=== PATIENT | male | born 1940 | race Caucasian/White ===

== ENCOUNTER 2019-10-27 08:36 | Inpatient (IN) | payer MEDICARE, OTHER ==
[~2019-10-27] VITALS: Ht 177.8 cm; Wt 72.6 kg
[~2019-10-27 08:36] MED LIST: ASMANEX220 MC1 INH; CEPHALEXIN500 MG PO; DULERA 100 MCG/13 GM INH; FLUOXETINE HCL20 MG PO; NEURONTIN100 MG PO; NEURONTIN300 MG PO; NICODERM CQ1 EAC1 TD; PLAVIX75 MG PO
--- OUTSIDE RECORDS SUMMARY | 2019-10-27 08:40 | XMS ---
PreManage Notification: OSITO HERNANDEZ Security Sonar Technician Events No recent Security Events currently on file CRITERIA MET - [facility] - [facility] - 2 Visits in 30 Days CARE PROVIDERS There are no care providers on record at this time. Andie has no Care Guidelines for this patient. Óscar VISIT COUNT (12 MO.) 3 [facility] TOTAL 3 NOTE: Visits indicate total known visits. ED/C VISIT TRACKING (12 MO.) 10/27/2019 08:38 [facility] [place] TYPE: Emergency COMPLAINT: - FALL, URINE PROBLEM 10/25/2019 20:19 [facility] [place] TYPE: Emergency COMPLAINT: - ALTERED MENTAL STATUS 10/21/2019 18:21 [facility] [place] TYPE: Emergency COMPLAINT: - LOC DIAGNOSES: - Allergy status to other antibiotic agents status - Syncope and collapse - Prsnl hx of TIA (TIA), and cereb infrc w/o resid deficits - Other fci (current) drug therapy - Essential (primary) hypertension - Gastro-esophageal reflux disease without esophagitis - Personal history of nicotine dependence - Allergy status to penicillin - Chronic obstructive pulmonary disease, unspecified INPATIENT VISIT TRACKING (12 MO.) No inpatient visits to display in this time frame [email or web address]
[2019-10-27] MEDS ORDERED: ACETAMINOPHEN500 MG PO (09:23)
--- NOTE | 2019-10-27 12:00 | NUR ---
PT ARRIVES TO [facility] VIA [facility] 3 PERSON ASSIST TRANSFER TO BED, ALARM IS SET. PT DOES NOT ANSWER QUESTIONS OR MAKE EYE CONTACT APPEARS DROWSY. UNDERGARMENT CHANGED WOUND TO SACRUM CLEANSED AND COVERED.
--- NOTE | 2019-10-27 13:32 | NUR ---
PT RESTLESS AND RESPONDING TO UNSEEN STIMULI APPEARS STRESSED HALDOL GIVEN
--- NOTE | 2019-10-27 13:54 | NUR ---
PATIENT IS TRYING TO CLIMB OUT OUT BED . SWINGS HIS ARMS WHEN TRYING TO DO VITAL,HULUNATION CALLING OUT TREATS, SAYING HIS DYING ,PATIENT HAS NO IDEAH WHERE HE IS
--- NOTE | 2019-10-27 14:44 | NUR ---
PT RESTING NOW, CONTINUES TO TALK SOMEWHAT, BUT CALMER NOT RESTLESS. BREATHING EVEN AND UNLABORED
--- NOTE | 2019-10-27 16:40 | NUR ---
PT RESTING IN BED CONTINUES TO BE RESTLESS RESPONDING TO UNSEEN STIMULI. SEIZURE PADS PLACED TO PROTECT PT FROM INJURING HIMSELF ON BED RAILS OR OTHER. SUPERVISOR OFFSET PLATE PREPARATION SITTING 11/14 AT THIS TIME TO PREVENT PT FROM PULLING IV OUT.
--- NOTE | 2019-10-27 17:44 | NUR ---
PT TOLERATES CLEAR LIQUID DIET WELL THIS EVENING FINISHES JELLO, BROTH, WELL JUICE. HE IS NOT COMBATIVE AT THIS TIME, BUT CONTINUES TO BE RESTLESS
--- NOTE | 2019-10-27 19:18 | NUR ---
RECEIVED REPORT FROM VENECIA BURCH. pt RESTING IN BED. BED ALARM ON. CURTAIN OPEN TO THE NURSES STATION. WHITEBOARD UPDATED.
--- NOTE | 2019-10-27 19:46 | NUR ---
ROUNDED CHARGE. ASSISTED PRIMARY RN TO REPOSITION pt. PRIMARY RN SARAH IN ROOM.
--- NOTE | 2019-10-27 19:50 | NUR ---
IN TO DO ASSESSMENT. pt RESTLESS. ORIENTED TO SELF CORRECTLY STATED NAME AND DATE OF . REPEATED THAT HE WAS AT [facility] LATER DURING ASSESSMENT. REPOSITIONED IN BED. DENIED PAIN AT THIS TIME. IVF INFUSING. BED ALARM ON. CURTAIN OPEN TO NURSES STATION.
--- NOTE | 2019-10-27 22:14 | NUR ---
SUZETTE D/C'D WNL. REPOSITIONED IN BED WITH TIMOTEO ESCOBAR. pt TOLERATED WELL. ATTENDS IN PLACE. WARM BLANKET PROVIDED. BED ALARM ON. LIGHTS OFF IN ROOM. IVF INFUSING WNL.
--- NOTE | 2019-10-28 00:29 | NUR ---
ROUNDED ON pt. CHANGED DEPEND, PAD SATURATED. NO REQUESTS AT THIS TIME. BED ALARM ON. CURTAIN OPEN TO NURSES STATION.
--- NOTE | 2019-10-28 02:15 | NUR ---
CHANGED pt. FRESH LINENS AND DEPENDS. VITALS AND I&O RECORDED. ASSESSMENT DONE. BED ALARM ON. CURTAIN OPEN TO NURSES STATION.
--- NOTE | 2019-10-28 04:00 | NUR ---
pt RESTLESS. DIRECTOR OF ENVIRONMENTAL SERVICES IN ROOM TO REDIRECT pt. BED ALARM ON.
--- NOTE | 2019-10-28 06:19 | NUR ---
pt AWAKE IN BED, RESTLESS. LARGE INCONTINENCE OF URINE, SMEAR OF STOOL. ATTENDS AND BEDDING CHANGED. VSS. REPOSITIONED IN BED. WARM BLANKETS PROVIDED. IVF INFUSING WNL. pt COOPERATIVE, TOLERATED WELL. BED ALARM ON.
--- NOTE | 2019-10-28 06:32 | NUR ---
pt DID NOT REST DURING SHIFT. RESTLESS, HALLUCINATIONS. NOT ORIENTED TO SITUATION OR PLACE. AT TIMES COMBATIVE ESPECIALLY IF SURPRISED. BRADFORD DC'd. INCONTINENT VOIDING. IVF INFUSING. TOLERATING CLEAR LIQUIDS. MULTIPLE SKIN TEARS. BED ALARM ON.
--- NOTE | 2019-10-28 07:34 | NUR ---
BEDSIDE REPORT RECEIVED PT RESTING SOUNDLY
--- NOTE | 2019-10-28 07:58 | NUR ---
Patient is sleeping call light in reach water in reach
--- NOTE | 2019-10-28 09:43 | NUR ---
PT AWAKENED FOR MORNING FLUIDS HE'S COOPERATIVE WITH GOOD INTAKE. NO COUGHING OR OTHER, FLUIDS WELL TOLERATED. PT APPEARS MORE ALERT TODAY, THOUGH CONFUSED, HE IS ABLE TO MAKE EYE CONTACT AND IS NOT CURRENTLY HALLUCINATING. BED ALARM IS SET AND SEIZURE PADS IN PLACE FOR SKIN PROTECTION.
--- NOTE | 2019-10-28 12:49 | NUR ---
DR BALBUENA IN TO SEE PT. DIET ORDER CHANGED PT EATS 100% OF SOFT LUNCH VISITS APPROPRIATELY. PT REQUIRES ASSIST TO EAT DUE TO HAND AND EYE DEFICITS. SPOKE TO [facility] THEY REPORT PT IS NON-AMBULATORY AT BASELINE.
--- NOTE | 2019-10-28 13:30 | NUR ---
pt resting soundly eyes closed breathing even and unlabored pt appears comfortable and no longer restless
--- NOTE | 2019-10-28 16:46 | NUR ---
PT UP TO THE CHAIR 2 PERSON ASSIST STAND PIVOT. ASSIST WITH HYGIEN PROVIDED
--- NOTE | 2019-10-28 18:09 | NUR ---
PT UP TO THE CHAIR FOR EVENING MEAL THEN TO REST IN BED. PT STATED HE NEEDED TO MOVE HIS BOWELS, 2 PERSON ASSIST TO BSC HE HAS LARGE BM. RETURNS TO BED TO REST
--- NOTE | 2019-10-28 19:21 | NUR ---
BEDSIDE REPORT RECEIVED FROM MARCIN CUADRA. pt RESTING IN BED. NO REQUESTS AT THIS TIME. BED ALARM ON.
--- NOTE | 2019-10-28 19:49 | NUR ---
ROUNDED CHARGE. PATIENT IS RESTING IN BED. VITALS TAKEN AND RECORDED. PATIENTS ATTEND CHANGED AND MORENA CARE COMPLETED. PATIENT REPOSITIONED IN BED. INTAKE AND OUPUT RECORDED. NOLVIA BURCH PRESENT IN ROOM.
--- NOTE | 2019-10-28 20:15 | NUR ---
pt CALLING OUT. ATTENDS AND CHUX CHANGED, INCONTINENT OF URINE AND STOOL. BARRIER CREAM APPLIED TO BUTTOCKS AND MORENA AREA. pt ORIENTED TO SELF, . REORIENTATION PROVIDED REGARDING SITUATION, LOCATION, DATE. IV SITES FLUSHED WNL SL. NON-ADHERANT DRESSING APPLIED TO SKIN TEARS ON RIGHT ARM. ASSESSMENT COMPLETE. BED ALARM ON.
--- NOTE | 2019-10-28 22:53 | NUR ---
CHECKED ON pt. RESTING IN BED WITH EYES CLOSED. BREATHING UNLABORED. LIGHTS OFF IN ROOM. pt NOT SHIFTING IN BED.
--- NOTE | 2019-10-29 02:00 | NUR ---
pt RESTING IN BED WITH EYES CLOSED, SNORING. BREATHING UNLABORED. BED ALARM ON.
--- NOTE | 2019-10-29 05:27 | NUR ---
pt CALLING OUT, STATES "IT HURTS". IN ROOM TO ADMINISTER PAIN MEDICATION. BEDDING SATURATED WITH URINE, LINENS, ATTENDS, CHUX CHANGED. ALLEVYN PLACED ON COCCYX, BILATERALLY HIPS. STAGE 1 PRESSURE ULCER UNCHANGED FROM PREVIOUS SHIFT. SMALL SKIN TEAR ON BUTTOCK. REPOSITIONED IN BED, PILLOWS UNDER HIPS BILATERALLY. WARM BLANKETS PROVIDED. pt DROWSY, REFUSES PRN TYLENOL ADMINISTRATION AT THIS TIME.
--- NOTE | 2019-10-29 05:36 | NUR ---
pt MORE ALERT THIS SHIFT, CONVERSING WITH STAFF. ORIENTED TO SELF, . REORIENTATION PROVIDED. INCONTINENT OF URINE, STOOL. SLEPT WELL THIS SHIFT. ALLEVYN PLACED ON COCCYX FOR STAGE 1 PRESSURE SORE UNCHANGED FROM PREVIOUS SHIFT. REDDENED AREA RIGHT HIP ALLEVYN PLACED. IV SITES SL. BED ALARM IN PLACE.
--- NOTE | 2019-10-29 07:20 | NUR ---
PT IN BED, EYES CLOSED, RESPIRATIONS EVEN AND NON LABORED. PT HAS NO S/S OF DISTRESS. PERSONAL SUPPLIES WITHIN REACH.
--- NOTE | 2019-10-29 08:05 | NUR ---
PATIENT RESTING IN BED. RN IN ROOM. PATIENT'S ATTENDS CHANGED. PATIENT REPOSITIONED ON HIS RIGHT SIDE. TWO PERSON ASSISTING. WARM BLANKETS PROVIDED. PATIENT'S BREAKFAST ORDERED. CALL LIGHT WITHIN REACH. NO OTHER NEEDS AT THIS TIME
--- NOTE | 2019-10-29 08:25 | NUR ---
ADMIN TYLENOL 500MG PO FOR REPORTS OF GENERALIZED 7/10 PAIN.
--- NOTE | 2019-10-29 09:00 | NUR ---
PATIENT RESTING IN BED. RN IN ROOM. ATTEND CHANGED. PATIENT REPOSITIONED ON HIS LEFT SIDE. TWO PERSON ASSISTING. CALL LIGHT WITHIN REACH. NO OTHER NEEDS AT THIS TIME
--- NOTE | 2019-10-29 09:07 | NUR ---
PATIENT RESTING IN BED. VITAL SIGNS AND I&O DONE. ICE WATER GIVEN. CALL LIGHT WITHIN REACH. NO OTHER NEEDS AT THIS TIME
[2019-10-29] MEDS ORDERED: CEPHALEXIN500 MG PO (11:13)
--- NOTE | 2019-10-29 12:08 | NUR ---
In and spoke with Laurent. He states he is not sure where he is and where he is going. Let him know he will return to [facility] tomorrow. Pt states this is fine. States yes to all questions when asked about DME. Spoke with Nehemiah at [facility] and he can return tomorrow.
--- NOTE | 2019-10-29 12:24 | NUR ---
Called and spoke with Nehemiah further information received. Pt arrived at [facility] when removed from the home by [employer], pt was found hypothermic in a room without heat and a sheet. She is unsure if he was living with family. He has been living at [facility] since Sep 29. Dr Salcido is is Dr as he is meterman placement. [facility] is his pharmacy.
--- NOTE | 2019-10-29 13:19 | NUR ---
PATIENT RESTING IN BED. VITAL SIGNS AND I&O DONE. WATER GIVEN. CALL LIGHT WITHIN REACH. NO OTHER NEEDS AT THIS TIME
--- NOTE | 2019-10-29 15:26 | NUR ---
PT IN BED AT THIS TIME, RESP EVEN AND NON LABORED. PT CONFUSED. REORIENT PT PRN. CALL LIGHT WITHIN REACH. TV ON AT THIS TIME. CLOSE TO RN STATION.
--- NOTE | 2019-10-29 15:50 | NUR ---
PATIENT RESTING IN BED. PATIENT SHAVED. COFFEE GIVEN. CALL LIGHT WITHIN REACH. NO OTHER NEEDS AT THIS TIME
--- NOTE | 2019-10-29 17:22 | NUR ---
PT IN BED AT THIS TIME WATCHING TV. PT IS ON RA, RESP EVEN AND NON LABORED. PERSONAL SUPPLIES AND CALL LIGHT WITHIN REACH.
--- NOTE | 2019-10-29 17:22 | NUR ---
PATIENT SITTING UP IN BED. PATIENT FED. VITAL SIGNS AND I&O DONE. HIGH DYASTOLIC BLOOD PRESSURE. RN NOTIFIED. CALL LIGHT WITHIN REACH. NO OTHER NEEDS AT THIS TIME
--- NOTE | 2019-10-29 19:25 | NUR ---
REPORT RECEIVED FROM DAY SHIFT RN. PT RESTING IN BED WITH EYES CLOSED, AWAKENS TO VOICE. SIDE RAILS UP AND BED ALARM ON FOR SAFETY. PT DENIES NEEDS AT THIS TIME. CALL LIGHT WITHIN REACH.
--- NOTE | 2019-10-29 21:00 | NUR ---
PT ALERTED STAFF OF WET ATTENDS. FRESH ATTENDS PLACED WITH 2PA, MORENA CARE DONE BY STAFF. PT ABLE TO ASSIST IN ROLLING BACK AND FORTH. REPOSITIONED IN BED. CALL LIGHT IN REACH.
--- NOTE | 2019-10-29 22:30 | NUR ---
EVENING ASSESSMENT COMPLETE. PM MEDS GIVEN WITHOUT DIFFICULTY. PT ORIENTED TO SELF AND PLACE. SCATTED BRUISING NOTED. ALLEVYN ON COCCYX AND RIGHT HIP CDI.
--- NOTE | 2019-10-29 22:44 | NUR ---
ASSISTED PATIENT DRINKING COFFEE. PATIENT USED LUCY CALL LIGHT. PATIENT WANTED TO BE CHANGED HIS ATTENDS. DONE.
--- NOTE | 2019-10-30 01:51 | NUR ---
PT RESTING IN BED WITH EYES CLOSED, NAD. RR EVEN AND UNLABORED.
--- NOTE | 2019-10-30 03:50 | NUR ---
PT RESTING IN BED WITH EYES CLOSED, RR EVEN AND UNLABORED. CALL LIGHT WITHIN REACH.
--- NOTE | 2019-10-30 06:03 | NUR ---
PT SLEPT WELL. ALERT, ORIENTED TO SELF AND PLACE. USES CALL LIGHT APPROPRIATELY. WILL CALL OUT AT TIMES ALSO. BED ALARM ON. SCATTERED BRUISES AND SKIN TEARS. ALLEVYN ON COCCYX AND RIGHT HIP. NON-AMBULATORY AT BASELINE. NEURONTIN FOR PAIN. PT STATES TYLENOL DOES NOT HELP HIM. TANIYA LIFT TO CHAIR.
--- NOTE | 2019-10-30 07:24 | NUR ---
PT SLEEPING AT THIS TIME, RESP EVEN AND NON LABORED. PT HAS NO DISTRESS NOTED. PERSONAL SUPPLIES AND CALL LIGHT WITHIN REACH. NO NEEDS AT THIS TIME.
--- NOTE | 2019-10-30 08:48 | NUR ---
PATIENT RESTING IN BED. PATIENT'S ATTENDS CHANGED. TWO PERSON ASSISTING. PATIENT FED. CALL LIGHT WITHIN REACH. NO OTHER NEEDS AT THIS TIME
--- NOTE | 2019-10-30 09:09 | NUR ---
Spoke with Nehemiah at [facility]. Pt will dc today and they will picking tech at 11:00. Discharge orders and summary faxed to Nehemiah and then placed on chart.
--- NOTE | 2019-10-30 09:25 | NUR ---
PATIENT RESTING IN BED. PATIENT'S ATTENDS CHANGED. VITAL SIGNS AND I&O DONE. CALL LIGHT WITHIN REACH. NO OTHER NEEDS AT THIS TIME
--- NOTE | 2019-10-30 10:57 | NUR ---
PATIENT RESTING IN BED. ATTTEND CHANGED. PATIENT IS USING HIS OWN CLOTHES BEFORE TO BE DISCHARGE FROM THE UNIT. TWO PERSON ASSISTING. CALL LIGHT WITHIN REACH. NO OTHER NEEDS AT THIS TIME
== END 2019-10-30 11:25 | disposition home or self-care (01) | DRG 871 ==
LOC: ED 08:36 → MS 11:21
PROVIDERS: ADMIT Internal Medicine
DX: A41.59 Other Gram-negative sepsis (principal); G93.41 Metabolic encephalopathy; N30.00 Acute cystitis without hematuria; I69.354 Hemiplegia and hemiparesis following cerebral infarction affecting left non-dominant side; F33.9 Major depressive disorder, recurrent, unspecified; J43.1 Panlobular emphysema; F01.50 Vascular dementia, unspecified severity, without behavioral disturbance, psychotic disturbance, mood disturbance, and anxiety; Z88.0 Allergy status to penicillin; Z88.1 Allergy status to other antibiotic agents; Z79.899 Other long term (current) drug therapy; Z79.51 Long term (current) use of inhaled steroids; Z79.02 Long term (current) use of antithrombotics/antiplatelets
CPT/HCPCS: 51702; 71045; 80053; 81001; 83605; 85025; 87088; 87502; 94640; 94760; 99285-25; A9270; J0696; J1630; J1650; J7030; J7121

== ENCOUNTER 2019-11-22 16:45 | Emergency (ER) | payer MEDICARE, OTHER ==
[~2019-11-22] VITALS: Ht 177.8 cm; Wt 72.6 kg
[~2019-11-22 16:45] MED LIST changes: +ACETAMINOPHEN500 MG PO
--- OUTSIDE RECORDS SUMMARY | 2019-11-22 16:48 | XMS ---
PreManage Notification: OSITO HERNANDEZ Security Breakdown Mill Operator Events No recent Security Events currently on file CRITERIA MET - [facility] - 2 Visits in 30 Days CARE PROVIDERS GARY BRAVO [facility] 10/29/2019-Current PHONE: [phone] Andie has no Care Guidelines for this patient. Óscar VISIT COUNT (12 MO.) 4 [facility] TOTAL 4 NOTE: Visits indicate total known visits. ED/UCC VISIT TRACKING (12 MO.) 11/22/2019 16:46 [facility] [place] TYPE: Emergency COMPLAINT: - L ARM INJURY 10/27/2019 08:38 [facility] [place] TYPE: Emergency COMPLAINT: - FALL, URINE PROBLEM 10/25/2019 20:19 [facility] [place] TYPE: Emergency COMPLAINT: - ALTERED MENTAL STATUS DIAGNOSES: - Allergy status to penicillin - Other intermediate accountant (current) drug therapy - Emphysema, unspecified - Urinary tract infection, site not specified - Essential (primary) hypertension - Urinary tract infection, site not specified 10/21/2019 18:21 [facility] [place] TYPE: Emergency COMPLAINT: - LOC DIAGNOSES: - Allergy status to other antibiotic agents status - Syncope and collapse - Prsnl hx of TIA (TIA), and cereb infrc w/o resid deficits - Other senior living (current) drug therapy - Essential (primary) hypertension - Gastro-esophageal reflux disease without esophagitis - Personal history of nicotine dependence - Allergy status to penicillin - Chronic obstructive pulmonary disease, unspecified INPATIENT VISIT TRACKING (12 MO.) 10/27/2019 11:21 [facility] [place] TYPE: Medical Surgical COMPLAINT: - UTI - ENCEPHALOPATHY DIAGNOSES: - Other Gram-negative sepsis Other Gra - Sepsis, unspecified organism Sepsis, u - intermediate (current) use of inhaled steroids - Allergy status to penicillin - Allergy status to other antibiotic agents status - Vascular dementia without behavioral disturbance - Metabolic encephalopathy - Hemiplga following cerebral infrc affecting left nondom side - Acute cystitis without hematuria - intermediate (current) use of antithrombotics/antiplatelets - Major depressive disorder, recurrent, unspecified - Other intermediate accountant (current) drug therapy - Panlobular emphysema [email or web address]
[2019-11-22] MEDS ORDERED: ZYPREXA5 MG PO (19:58)
== END 2019-11-22 20:20 | disposition home or self-care (01) ==
LOC: ED 16:45
DX: S41.112A Laceration without foreign body of left upper arm, initial encounter (principal); S41.111A Laceration without foreign body of right upper arm, initial encounter; W22.8XXA Striking against or struck by other objects, initial encounter; R25.9 Unspecified abnormal involuntary movements; J44.9 Chronic obstructive pulmonary disease, unspecified; F32.9 Major depressive disorder, single episode, unspecified; I10 Essential (primary) hypertension; K21.9 Gastro-esophageal reflux disease without esophagitis; Z87.891 Personal history of nicotine dependence; Z88.0 Allergy status to penicillin; Z88.1 Allergy status to other antibiotic agents; Z79.899 Other long term (current) drug therapy
CPT/HCPCS: 71045; 73060; 73090; 80053; 85025; 96374; 99284-25; J3010

== ENCOUNTER 2020-04-16 11:34 | Emergency (ER) | payer MEDICARE, OTHER ==
[~2020-04-16] VITALS: Ht 177.8 cm; Wt 72.6 kg
[~2020-04-16 11:34] MED LIST changes: +ZYPREXA5 MG PO
--- OUTSIDE RECORDS SUMMARY | 2020-04-16 11:36 | XMS ---
PreManage Notification: OSITO HERNANDEZ Security Director Chemistry Events No recent Security Events currently on file CRITERIA MET - History of Sepsis Dx - PDMP CARE PROVIDERS Name Unknown Detention Facility Current PHONE: [phone] Carmen Seymour Bin Operator/Elevator Examiner And Adjuster 02/22/2020-Current PHONE: [phone] [facility] 10/29/2019-Current PHONE: [phone] Ines Murillo Community Health Worker 03/14/2019-Current Abdiel Yan PHONE: [phone] Artie Martini [facility] Current PHONE: [phone] Andie has no Care Guidelines for this patient. Óscar VISIT COUNT (12 MO.) 3 [place] [address] [facility] TOTAL 8 NOTE: Visits indicate total known visits. ED/UCC VISIT TRACKING (12 MO.) 04/16/2020 11:34 [facility] [place] TYPE: Emergency COMPLAINT: - RASH AROUND EYES 11/22/2019 16:46 [facility] [place] TYPE: Emergency COMPLAINT: - L ARM INJURY DIAGNOSES: - Allergy status to other antibiotic agents status - Major depressive disorder, single episode, unspecified - Unspecified abnormal involuntary movements - Other mcc (current) drug therapy - Essential (primary) hypertension - Gastro-esophageal reflux disease without esophagitis - Pain in left arm - Personal history of nicotine dependence - Allergy status to penicillin - Laceration without foreign body of left upper arm, initial en - Chronic obstructive pulmonary disease, unspecified - Laceration without foreign body of right upper arm, initial e - Striking against or struck by other objects, initial encounte 10/27/2019 08:38 [facility] [place] TYPE: Emergency COMPLAINT: - FALL, URINE PROBLEM 10/25/2019 20:19 [facility] [place] TYPE: Emergency COMPLAINT: - ALTERED MENTAL STATUS DIAGNOSES: - Allergy status to penicillin - Other termite control servicer (current) drug therapy - Emphysema, unspecified - Urinary tract infection, site not specified - Essential (primary) hypertension - Urinary tract infection, site not specified 10/21/2019 18:21 [facility] [place] TYPE: Emergency COMPLAINT: - LOC DIAGNOSES: - Allergy status to other antibiotic agents status - Syncope and collapse - Personal history of transient ischemic attack (TIA), and cere - Other mcc (current) drug therapy - Essential (primary) hypertension - Gastro-esophageal reflux disease without esophagitis - Personal history of nicotine dependence - Allergy status to penicillin - Chronic obstructive pulmonary disease, unspecified 09/28/2019 10:53 [facility] [place] TYPE: Emergency DIAGNOSES: - INCREASED WEAKNESS - Hypothermia, initial encounter 06/02/2019 07:43 [facility] [place] TYPE: Emergency DIAGNOSES: - POSSIBLE STROKE - Contusion of left front wall of thorax, initial encounter - Chondrocostal junction syndrome [Destinytze] 05/08/2019 10:09 [facility] [place] TYPE: Emergency DIAGNOSES: - Other muscle spasm - Unspecified acute conjunctivitis, bilateral - STROKE INPATIENT VISIT TRACKING (12 MO.) 10/27/2019 11:21 [facility] [place] TYPE: Medical Surgical COMPLAINT: - UTI - ENCEPHALOPATHY DIAGNOSES: - Other Gram-negative sepsis - Sepsis, unspecified organism - USP (current) use of inhaled steroids - Allergy status to penicillin - Allergy status to other antibiotic agents status - 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
[2020-04-16] MEDS ORDERED: AMLODIPINE BES2.5 MG PO (11:52)
[2020-04-16] MEDS ORDERED: GABAPENTIN400 MG PO (11:53)
[2020-04-16] MEDS ORDERED: CLOPIDOGREL75 MG PO (11:54)
[2020-04-16] MEDS ORDERED: TRAMADOL HCL50 MG PO (11:55)
[2020-04-16] MEDS ORDERED: QUETIAPINE FUMA25 MG PO (11:55)
[2020-04-16] MEDS ORDERED: FAMCICLOVIR500 MG PO (12:49)
== END 2020-04-16 13:30 | disposition home or self-care (01) ==
LOC: ED 11:34
DX: B02.9 Zoster without complications (principal); J44.9 Chronic obstructive pulmonary disease, unspecified; F32.9 Major depressive disorder, single episode, unspecified; I10 Essential (primary) hypertension; K21.9 Gastro-esophageal reflux disease without esophagitis; Z87.891 Personal history of nicotine dependence; Z88.0 Allergy status to penicillin; Z88.8 Allergy status to other drugs, medicaments and biological substances; Z79.899 Other long term (current) drug therapy; Z79.02 Long term (current) use of antithrombotics/antiplatelets
CPT/HCPCS: 99283

== ENCOUNTER 2020-06-17 19:43 | Emergency (ER) | payer MEDICARE, OTHER ==
[~2020-06-17] VITALS: Ht 177.8 cm; Wt 67.4 kg
[~2020-06-17 19:43] MED LIST changes: +AMLODIPINE BES2.5 MG PO; +AMLODIPINE BESYL5 MG PO; +ANTIFUNGAL CREA14 GM TOP; +CLOPIDOGREL75 MG PO; +DULCOLAX10 MG PR; +FAMCICLOVIR500 MG PO; +FLEET ENEMA133 ML PR; +GABAPENTIN400 MG PO; +GERI-MOX ANTAC355 ML PO; +GERI-TUSSI100 MG/5 M PO; +HYDROXYZINE HCL25 MG PO; +LIDO KING1 EACH TOP; +MILK OF MA400 MG/5 M PO; +QUETIAPINE FUMA25 MG PO; +SENIOR TABS1 EACH PO; +TRAMADOL HCL50 MG PO; +TYLENOL WITH C1 EACH PO
--- OUTSIDE RECORDS SUMMARY | 2020-06-17 19:46 | XMS ---
PreManage Notification: OSITO HERNANDEZ Security Chain Builder Loom Control Events No recent Security Events currently on file CRITERIA MET - History of Sepsis Dx - PDMP - [facility] - 2 Visits in 30 Days CARE PROVIDERS Name Unknown [facility]it[facility] Facility Current PHONE: [phone] Carmen Seymour Retail Shift Supervisor/Train Brakeman 02/22/2020-Current PHONE: [phone] [facility] 10/29/2019-Current PHONE: [phone] Ines Murillo Community Health Worker 03/14/2019-Current Abdiel Yan PHONE: [phone] Artie Martini [facility] Current PHONE: [phone] Andie has no Care Guidelines for this patient. Óscar VISIT COUNT (12 MO.) [address] [place] [address] NAT[facility] Flynn TOTAL 8 NOTE: Visits indicate total known visits. ED/UCC VISIT TRACKING (12 MO.) 06/17/2020 19:43 [facility] [place] TYPE: Emergency COMPLAINT: - ABD PAIN 05/19/2020 15:04 [facility] [place] TYPE: Emergency COMPLAINT: - WEAKNESS 04/16/2020 11:34 [facility] [place] TYPE: Emergency COMPLAINT: - RASH AROUND EYES DIAGNOSES: - Allergy status to penicillin - Personal history of nicotine dependence - Zoster without complications - Rash and other nonspecific skin eruption - dental hygienist (current) use of antithrombotics/antiplatelets - Chronic obstructive pulmonary disease, unspecified - Allergy status to other drugs, medicaments and biological sub - Major depressive disorder, single episode, unspecified - Other storage battery charger (current) drug therapy - Essential (primary) hypertension - Gastro-esophageal reflux disease without esophagitis 11/22/2019 16:46 [facility] [place] TYPE: Emergency COMPLAINT: - L ARM INJURY DIAGNOSES: - Allergy status to other antibiotic agents status - Major depressive disorder, single episode, unspecified - Unspecified abnormal involuntary movements - Other storage battery charger (current) drug therapy - Essential (primary) hypertension [...] - Allergy status to penicillin - Other storage battery charger (current) drug therapy - Emphysema, unspecified - Urinary tract infection, site not specified - Essential (primary) hypertension - Urinary tract infection, site not specified 10/21/2019 18:21 [facility] [place] TYPE: Emergency COMPLAINT: - LOC DIAGNOSES: - Allergy status to other antibiotic agents status - Syncope and collapse - Personal history of transient ischemic attack (TIA), and cere - Other storage battery charger (current) drug therapy - Essential (primary) hypertension - Gastro-esophageal reflux disease without esophagitis - Personal history of nicotine dependence - Allergy status to penicillin - Chronic obstructive pulmonary disease, unspecified 09/28/2019 10:53 [facility] [place] TYPE: Emergency DIAGNOSES: - INCREASED WEAKNESS - Hypothermia, initial encounter INPATIENT VISIT TRACKING (12 MO.) 05/19/2020 15:05 [facility] [place] TYPE: Observation COMPLAINT: - ALTERED LOC DIAGNOSES: - Unspecified coma - Essential (primary) hypertension - Gastro-esophageal reflux disease without esophagitis - Hemiplegia, unspecified affecting unspecified side - Major depressive disorder, single episode, unspecified - Zoster without complications - Hyperlipidemia, unspecified - Emphysema, unspecified - Contact with and (suspected) exposure to other viral communic - Allergy status to penicillin - Restlessness and agitation - Allergy status to other drugs, medicaments and biological sub 10/27/2019 11:[address] 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
[2020-06-17] MEDS ORDERED: NEURONTIN400 MG PO (20:55)
[2020-06-17] MEDS ORDERED: ATIVAN1 MG PO (20:58)
[2020-06-17] MEDS ORDERED: SYMBICORT 16010.2 GM INH (21:05)
[2020-06-17] MEDS ORDERED: NAPROXEN375 MG PO (22:45)
== END 2020-06-17 23:51 | disposition home or self-care (01) ==
LOC: ED 19:43
PROC: 4A0D7LZ Measurement of Urinary Volume, Via Natural or Artificial Opening (ICD-10-PCS; principal; 2020-06-17)
DX: K40.90 Unilateral inguinal hernia, without obstruction or gangrene, not specified as recurrent (principal); J44.9 Chronic obstructive pulmonary disease, unspecified; I10 Essential (primary) hypertension; K21.9 Gastro-esophageal reflux disease without esophagitis; Z86.73 Personal history of transient ischemic attack (TIA), and cerebral infarction without residual deficits; Z87.891 Personal history of nicotine dependence; Z88.0 Allergy status to penicillin; Z88.8 Allergy status to other drugs, medicaments and biological substances; Z79.899 Other long term (current) drug therapy
CPT/HCPCS: 51798; 74177; 80053; 81001; 85025; 96361; 96374; 96375; 99284-25; J2270; J2405; J7030; Q9967

== ENCOUNTER 2020-08-11 11:40 | Emergency (ER) | payer MEDICARE, OTHER ==
[~2020-08-11] VITALS: Ht 177.8 cm; Wt 76.7 kg
[~2020-08-11 11:40] MED LIST changes: +ACETAMINOPHEN-1 EAC1 PO; +ATIVAN1 MG PO; +KEFLEX500 MG PO; +NAPROXEN375 MG PO; +NEURONTIN400 MG PO; +PANTOPRAZOLE SO40 MG PO; +SENNA PLUS 8.61 EACH PO; +SYMBICORT 16010.2 GM INH; +TAMSULOSIN HCL0.4 MG PO
--- OUTSIDE RECORDS SUMMARY | 2020-08-11 11:42 | XMS ---
PreManage Notification: OSITO HERNANDEZ Security Production Team Member Events No recent Security Events currently on file CRITERIA MET - 6 ED Visits in 6 Months - History of Sepsis Dx - [facility] - 2 Visits in 30 Days CARE PROVIDERS Name Unknown Long-Term Facility Current PHONE: [phone] Carmen Seymour Associate Professor Of Literacy/Family Living Educator 02/22/2020-Current PHONE: [phone] [facility] 10/29/2019-Current PHONE: [phone] Ines Murillo Community Health Worker 03/14/2019-Current Abdiel Yan PHONE: [phone] Artie Martini [facility] Current PHONE: [phone] Andie has no Care Guidelines for this patient. EJulian VISIT COUNT (12 MO.) [address] [place] [address] NATALIA Flynn TOTAL 11 NOTE: Visits indicate total known visits. ED/UCC VISIT TRACKING (12 MO.) 08/11/2020 11:41 [facility] [place] TYPE: Emergency COMPLAINT: - COMBATIVE 07/30/2020 22:25 [facility] [place] TYPE: Emergency COMPLAINT: - ALTERED MENTAL STATUS DIAGNOSES: - Major depressive disorder, single episode, unspecified - Personal history of nicotine dependence - Altered mental status, unspecified - Altered mental status, unspecified - Urinary tract infection, site not specified - Unspecified dementia without behavioral disturbance - Chronic obstructive pulmonary disease, unspecified - Allergy to other foods - Allergy status to other antibiotic agents status - Allergy status to penicillin - Gastro-esophageal reflux disease without esophagitis - Other mcfp (current) drug therapy 06/25/2020 16:21 [facility] [place] TYPE: Emergency COMPLAINT: - ABD PAIN 06/17/2020 19:43 [facility] [place] TYPE: Emergency COMPLAINT: - ABD PAIN DIAGNOSES: - Personal history of transient ischemic attack (TIA), and cere - Personal history of nicotine dependence - Allergy status to other drugs, medicaments and biological sub - Unilateral inguinal hernia, without obstruction or gangrene, - Other mcfp (current) drug therapy - Allergy status to penicillin - Essential (primary) hypertension - Left lower quadrant pain - Gastro-esophageal reflux disease without esophagitis - Chronic obstructive pulmonary disease, unspecified 05/19/2020 15:04 [facility] [place] TYPE: Emergency COMPLAINT: - WEAKNESS 04/16/2020 11:34 [facility] [place] TYPE: Emergency COMPLAINT: - RASH AROUND EYES DIAGNOSES: - Allergy status to penicillin - Personal history of nicotine dependence - Zoster without complications - Rash and other nonspecific skin eruption - assisted (current) use of antithrombotics/antiplatelets - Chronic obstructive pulmonary disease, unspecified - Allergy status to other drugs, medicaments and biological sub - Major depressive disorder, single episode, unspecified - Other mcfp (current) drug therapy - Essential (primary) hypertension - Gastro-esophageal reflux disease without esophagitis 11/22/2019 16:46 [facility] [place] TYPE: Emergency COMPLAINT: - L ARM INJURY DIAGNOSES: - Allergy status to other antibiotic agents status - Major depressive disorder, single episode, unspecified - Unspecified abnormal involuntary movements - Other mcfp (current) drug therapy - Essential (primary) hypertension [...] - Allergy status to penicillin - Other parts counterman (current) drug therapy - Emphysema, unspecified - Urinary tract infection, site not specified - Essential (primary) hypertension - Urinary tract infection, site not specified 10/21/2019 18:21 [facility] [place] TYPE: Emergency COMPLAINT: - LOC DIAGNOSES: - Allergy status to other antibiotic agents status - Syncope and collapse - Personal history of transient ischemic attack (TIA), and cere - Other mcfp (current) drug therapy - Essential (primary) hypertension - Gastro-esophageal reflux disease without esophagitis - Personal history of nicotine dependence - Allergy status to penicillin - Chronic obstructive pulmonary disease, unspecified 09/28/2019 10:53 [facility] [place] TYPE: Emergency DIAGNOSES: - INCREASED WEAKNESS - Hypothermia, initial encounter INPATIENT VISIT TRACKING (12 MO.) 06/25/2020 16:22 [facility] [place] TYPE: Observation COMPLAINT: - GI BLEED DIAGNOSES: - Allergy status to penicillin - Essential (primary) hypertension - Gastrointestinal hemorrhage, unspecified - Allergy to other foods - Personal history of transient ischemic attack (TIA), and cere - Diaphragmatic hernia without obstruction or gangrene - Allergy status to other drugs, medicaments and biological sub - Emphysema, unspecified - Acute duodenal ulcer with hemorrhage - Other parts counterman (current) drug therapy - Alzheimer's disease, unspecified - Dementia in other diseases classified elsewhere with behavior - Acute posthemorrhagic anemia 05/19/2020 15:05 [facility] [place] TYPE: Observation [...] drugs, medicaments and biological sub 10/27/2019 11:21 [facility] [place] TYPE: Medical Surgical COMPLAINT: - UTI - ENCEPHALOPATHY DIAGNOSES: - Other Gram-negative sepsis - Sepsis, unspecified organism - assisted (current) use of inhaled steroids - Allergy status to penicillin - Allergy status to other antibiotic agents status - Vascular dementia without behavioral disturbance - Metabolic encephalopathy - 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
[2020-08-11] MEDS ORDERED: MELATONIN3 M3 PO (13:52)
[2020-08-11] MEDS ORDERED: FEOSOL325 MG PO (13:52)
[2020-08-11] MEDS ORDERED: SERTRALINE HCL50 MG PO (13:54)
[2020-08-11] MEDS ORDERED: SEROQUEL XR200 MG PO (16:44)
[2020-08-11] MEDS ORDERED: SEROQUEL50 MG PO (18:32)
--- NOTE | 2020-08-12 15:42 | EKG ---
[facility] [address] [facility] [address] [place] [address] Signed Sinus rhythm with frequent premature ventricular complexes Left axis deviation Prolonged QT Abnormal ECG When compared with ECG of 25-JUN-2020 16:45, premature ventricular complexes are now present Confirmed by SERGEY BELL DO ([id number]) on 08/12/2020 3:42:39 PM Electronically Signed By: SERGEY BELL DO 08/12/20 1542 PATIENT NAME: OSITO HERNANDEZ Electrocardiogram DATE OF : 38 PHYSICIAN: SERGEY BELL DO REPORT #: [id number] REPORT IS CONFIDENTIAL AND NOT TO BE RELEASED WITHOUT AUTHORIZATION
== END 2020-08-11 19:19 | disposition home or self-care (01) ==
LOC: ED 11:40
DX: F03.91 Unspecified dementia, unspecified severity, with behavioral disturbance (principal); J44.9 Chronic obstructive pulmonary disease, unspecified; F32.9 Major depressive disorder, single episode, unspecified; Z86.73 Personal history of transient ischemic attack (TIA), and cerebral infarction without residual deficits; I10 Essential (primary) hypertension; K21.9 Gastro-esophageal reflux disease without esophagitis; Z88.0 Allergy status to penicillin; Z88.8 Allergy status to other drugs, medicaments and biological substances; Z91.018 Allergy to other foods; Z79.899 Other long term (current) drug therapy
CPT/HCPCS: 51798; 80053; 80176; 81001; 84443; 85025; 93005; 93010; 96374; 99285-25; G0480; J1790; J2060

== ENCOUNTER → 2020-08-30 | Emergency (ER) | payer MEDICARE, OTHER ==
[~2020-08-30] VITALS: Ht 177.8 cm; Wt 76.7 kg
[~2020-08-30] MED LIST changes: +BUSPIRONE HCL5 MG PO; +FEOSOL325 MG PO; +LORAZEPAM1 MG PO; +MELATONIN3 M3 PO; +RISPERIDONE0.5 MG PO; +SEROPHENE50 MG PO; +SEROQUEL XR200 MG PO; +SEROQUEL50 MG PO; +SERTRALINE HCL50 MG PO; +ZOLOFT25 MG PO; +ZOLOFT50 MG PO
--- OUTSIDE RECORDS SUMMARY | 2020-08-30 15:38 | XMS ---
PreManage Notification: OSITO HERNANDEZ Security Emergency Telecommunications Dispatcher Events No recent Security Events currently on file CRITERIA MET - 6 ED Visits in 6 Months - [facility] - 2 Visits in 30 Days CARE PROVIDERS Name Unknown [facility] Current PHONE: [phone] Carmen Seymour Chemical Librarian/Single Fold Machine Operator 02/22/2020-Current PHONE: [phone] Carmen Seymour Chemical Librarian/Single Fold Machine Operator 02/22/2020-Current PHONE: [phone] [facility] 10/29/2019-Current PHONE: [phone] Ines Murillo Community Health Worker 03/14/2019-Current Abdiel Yan PHONE: [phone] Artie Martini [facility] Current PHONE: [phone] Andie has no Care Guidelines for this patient. Óscar VISIT COUNT (12 MO.) [address] [place] TOTAL 12 NOTE: Visits indicate total known visits. ED/UCC VISIT TRACKING (12 MO.) 08/30/2020 15:36 [facility] [place] TYPE: Emergency COMPLAINT: - ALTERED MENTAL STATUS 08/11/2020 11:41 [facility] [place] TYPE: Emergency COMPLAINT: - COMBATIVE DIAGNOSES: - Gastro-esophageal reflux disease without esophagitis - Other long term care pharmacist (current) drug therapy - Essential (primary) hypertension - Allergy status to penicillin - Allergy to other foods - Chronic obstructive pulmonary disease, unspecified - Unspecified dementia with behavioral disturbance - Personal history of transient ischemic attack (TIA), and cere - Allergy status to other drugs, medicaments and biological sub - Major depressive disorder, single episode, unspecified 07/30/2020 22:25 [facility] [place] TYPE: Emergency [...] Gastro-esophageal reflux disease without esophagitis - Other long term care pharmacist (current) drug therapy 06/25/2020 16:21 [facility] [place] TYPE: Emergency COMPLAINT: - ABD PAIN 06/17/2020 19:43 [facility] [place] TYPE: Emergency COMPLAINT: - ABD PAIN DIAGNOSES: - Personal history of transient ischemic attack (TIA), and cere - Personal history of nicotine dependence - Allergy status to other drugs, medicaments and biological sub - Unilateral inguinal hernia, without obstruction or gangrene, - Other fdc (current) drug therapy - Allergy status to [...] Rash and other nonspecific skin eruption - long term care pharmacist (current) use of antithrombotics/antiplatelets - Chronic obstructive pulmonary disease, unspecified - Allergy status to other drugs, medicaments and biological sub - Major depressive disorder, single episode, unspecified - Other fdc (current) drug therapy - Essential (primary) hypertension - Gastro-esophageal reflux disease without esophagitis 11/22/2019 16:46 [facility] [place] TYPE: Emergency COMPLAINT: - L ARM INJURY DIAGNOSES: - Allergy status to other antibiotic agents status - Major depressive disorder, single episode, unspecified - Unspecified abnormal involuntary movements - Other long term care pharmacist (current) drug therapy - Essential (primary) hypertension [...] - Allergy status to penicillin - Other fdc (current) drug therapy - Emphysema, unspecified - Urinary tract infection, site not specified - Essential (primary) hypertension - Urinary tract infection, site not specified 10/21/2019 18:21 [facility] [place] TYPE: Emergency COMPLAINT: - LOC DIAGNOSES: - Allergy status to other antibiotic agents status - Syncope and collapse - Personal history of transient ischemic attack (TIA), and cere - Other long term care pharmacist (current) drug therapy - Essential (primary) hypertension - Gastro-esophageal reflux disease without esophagitis - Personal history of nicotine dependence - Allergy status to penicillin - Chronic obstructive pulmonary disease, unspecified 09/28/2019 10:[address] 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
--- NOTE | 2020-08-31 17:33 | EKG ---
[facility] [address] [facility] [place] [address] Signed Normal sinus rhythm with premature ventricular complexes or fusion complexes Left axis deviation Abnormal ECG When compared with ECG of 11-AUG-2020 13:56, No significant change was found Confirmed by ARLYN BALBUENA MD ([id number]) on 08/31/2020 5:33:14 PM Electronically Signed By: ARLYN BALBUENA MD 08/31/20 1733 PATIENT NAME: OSITO HERNANDEZ Electrocardiogram DATE OF : 38 PHYSICIAN: ARLYN BALBUENA MD REPORT #: [id number] REPORT IS CONFIDENTIAL AND NOT TO BE RELEASED WITHOUT AUTHORIZATION
== END ==
LOC: ED 15:35
DX: F91.9 Conduct disorder, unspecified (principal); F01.51 Vascular dementia, unspecified severity, with behavioral disturbance; J44.9 Chronic obstructive pulmonary disease, unspecified; I10 Essential (primary) hypertension; K21.9 Gastro-esophageal reflux disease without esophagitis; Z88.0 Allergy status to penicillin; Z88.1 Allergy status to other antibiotic agents; Z91.018 Allergy to other foods; Z79.899 Other long term (current) drug therapy
CPT/HCPCS: 70450; 80053; 81001; 85025; 93005; 93010; 99285-25

== ENCOUNTER 2021-09-03 19:06 | Emergency (ER) | payer MEDICARE, OTHER ==
[~2021-09-03] VITALS: Ht 177.8 cm; Wt 98.0 kg
[2021-09-03] MEDS ORDERED: VITAMIN C500 M5 PO (20:38)
[2021-09-03] MEDS ORDERED: TRIAMCINOLONE A15 G1 (20:39)
[2021-09-03] MEDS ORDERED: COZAAR50 MG PO (20:40)
[2021-09-03] MEDS ORDERED: FUROSEMIDE20 MG PO (20:40)
[2021-09-03] MEDS ORDERED: ORAJEL 3X MOUT5.1 GM MM (20:41)
[2021-09-03] MEDS ORDERED: ARTHRITIS PAIN100 GM (20:42)
[2021-09-03] MEDS ORDERED: ASPERFLEX1 EACH TD (20:42)
--- NOTE | 2021-09-05 13:48 | EKG ---
[facility] [address] [facility] [place] [address] Signed Sinus rhythm with premature supraventricular complexes and with occasional premature ventricular complexes Left axis deviation Abnormal ECG When compared with ECG of 30-AUG-2020 16:14, fusion complexes are no longer present premature supraventricular complexes are now present Confirmed by ARLYN BALBUENA MD ([id number]) on 09/05/2021 1:48:11 PM Electronically Signed By: ARLYN BALBUENA MD 09/05/21 1348 PATIENT NAME: OSITO HERNANDEZ Electrocardiogram DATE OF : 38 PHYSICIAN: ARLYN BALBUENA MD REPORT #: [id number] REPORT IS CONFIDENTIAL AND NOT TO BE RELEASED WITHOUT AUTHORIZATION
== END 2021-09-04 00:51 | disposition home or self-care (01) ==
LOC: ED 19:06
DX: J20.9 Acute bronchitis, unspecified (principal); J43.9 Emphysema, unspecified; I10 Essential (primary) hypertension; K21.9 Gastro-esophageal reflux disease without esophagitis; M19.90 Unspecified osteoarthritis, unspecified site; Z20.822 Contact with and (suspected) exposure to COVID-19; Z88.0 Allergy status to penicillin; Z88.1 Allergy status to other antibiotic agents; Z91.018 Allergy to other foods; Z79.899 Other long term (current) drug therapy
CPT/HCPCS: 71045; 80053; 83735; 84484; 85025; 93005; 93010; 99284-25; C9803; U0003

== ENCOUNTER 2021-12-24 05:35 | Emergency (ER) | payer MEDICARE, OTHER ==
[~2021-12-24] VITALS: Ht 177.8 cm; Wt 98.0 kg
[~2021-12-24 05:35] MED LIST changes: +ARTHRITIS PAIN100 GM; +ASPERFLEX1 EACH TD; +COZAAR50 MG PO; +FUROSEMIDE20 MG PO; +ORAJEL 3X MOUT5.1 GM MM; +TRIAMCINOLONE A15 G1; +VITAMIN C500 M5 PO
--- NOTE | 2021-12-24 18:55 | EKG ---
[facility] [address] [facility] [place] [address] Signed Sinus tachycardia with premature atrial complexes Nonspecific ST abnormality Abnormal ECG No previous ECGs available Confirmed by SERGEY BELL DO ([id number]) on 12/24/2021 6:54:40 PM Electronically Signed By: SERGEY BELL DO 12/24/21 1855 PATIENT NAME: OSITO HERNANDEZ Electrocardiogram DATE OF : 38 PHYSICIAN: SERGEY BELL DO REPORT #: [id number] REPORT IS CONFIDENTIAL AND NOT TO BE RELEASED WITHOUT AUTHORIZATION
== END 2021-12-24 11:25 | disposition short-term general hospital (02) ==
LOC: ED 05:35
DX: I71.02 Dissection of abdominal aorta (principal); M54.6 Pain in thoracic spine; Z20.822 Contact with and (suspected) exposure to COVID-19; J44.9 Chronic obstructive pulmonary disease, unspecified; I10 Essential (primary) hypertension; K21.9 Gastro-esophageal reflux disease without esophagitis; M19.90 Unspecified osteoarthritis, unspecified site; Z88.0 Allergy status to penicillin; Z88.8 Allergy status to other drugs, medicaments and biological substances; Z79.899 Other long term (current) drug therapy
CPT/HCPCS: 36415; 51701; 71045; 71260; 74177; 80053; 81001; 83690; 85025; 85379; 87088; 93005; 93010; 94640; 94660; 99285-25; C9803; J1170; J2405; Q9967; U0003